=== PATIENT | female | born 1950 | race Caucasian/White ===

== ENCOUNTER → 2017-06-08 | Outpatient (CLI) | payer MEDICARE ==
[~2017-06-08] MED LIST: ASPI-496 PO; ESTR0.45 PO; GABA300C10 PO; HYDR25TA6 PO; LISI-170 PO; METF750T2 PO; NAPR-816 PO; PRAV40TA2 PO
[2017-06-08 10:33] LABS: HEMOGLOBIN 16.1 g/dL (11.7-16.4); WHITE BLOOD COUNT 4.8 x10^3/uL (3.4-10)
[2017-06-08 10:46] LABS: ASPARTATE AMINO TRANSFERASE 35 U/L (15-37); BLOOD UREA NITROGEN 23 mg/dL (7-18)
== END | disposition home or self-care (01) ==
LOC: STAR 09:34
PROVIDERS: ATTEND Neurological Surgery
DX: Z01.811 Encounter for preprocedural respiratory examination (principal); I10 Essential (primary) hypertension; M47.894 Other spondylosis, thoracic region; M48.06 Spinal stenosis, lumbar region; R79.1 Abnormal coagulation profile
CPT/HCPCS: 36415; 71020; 80053; 81003; 85025; 85610; 85730; 93005

== ENCOUNTER → 2019-08-25 | Outpatient (CLI) | payer MEDICARE ==
[~2019-08-25] MED LIST changes: +ACET650T10 PO; -METF750T2 PO; +METF750T42 PO; +METH750T87 PO; +OXYC-302 PO; +REGADENOSON 0.4 MG/5 ML SYRINGE ONE
== END | disposition home or self-care (01) ==
LOC: CFH 11:21
PROVIDERS: ATTEND Internal Medicine Cardiovascular Disease
DX: I08.3 Combined rheumatic disorders of mitral, aortic and tricuspid valves (principal); I10 Essential (primary) hypertension; I25.10 Atherosclerotic heart disease of native coronary artery without angina pectoris; E78.5 Hyperlipidemia, unspecified; R73.09 Other abnormal glucose
CPT/HCPCS: 78452; 93017; 93306; A9502; J2785